=== PATIENT | male | born 1975 | race Caucasian/White ===

== ENCOUNTER 2024-01-13 07:05 | Emergency (ER) | payer OTHER ==
[~2024-01-13] VITALS: Ht 193 cm; Wt 103.0 kg
[2024-01-13] MEDS ORDERED: IBUPROFEN 800 MG TAB PO ONE (07:45)
[2024-01-13 08:54] VITALS: BP 136/93
== END 2024-01-13 08:54 | disposition home or self-care (01) ==
LOC: ED 07:05
DX: M25.571 Pain in right ankle and joints of right foot (principal)
CPT/HCPCS: 73610; 99283; A9270

== ENCOUNTER 2024-02-29 11:15 | Day surgery (SDC) | payer OTHER ==
[2024-02-27 09:22] VITALS: BP 116/78
[~2024-02-29] VITALS: Ht 193 cm; Wt 102.3 kg
[~2024-02-29 11:15] MED LIST: CEFAZOLIN SODIUM 2 GM/20 ML SYR IV SCH; IBLOOD GLUCOSE TEST STRIP 1 EA TEST VI PRN; LACTATED RINGER'S 1,000 ML IV SCH; LIDOCAINE HCL 1% 5 ML SDV INJ ONE; MULTI VITAMIN1 EACH PO; OXYCODONE HCL10 MG PO; PROBIOTIC1 EAC8 PO
[2024-02-29 11:37] VITALS: BP 117/77
[2024-02-29] MEDS ORDERED: propofoL 200 MG/20 ML VIAL ONE (13:05)
[2024-02-29] MEDS ORDERED: dexmedeTOMIDine HCl 200 MCG/2 ML VIAL ONE (13:26)
[2024-02-29] MEDS ORDERED: LACTATED RINGER'S 1,000 ML IV ONE (13:28)
--- NOTE | 2024-02-29 13:45 | NUR ---
02/29/24 1343 [place] 1336 PT TO PACU SLEEPING ORAL AIRWAY IN PLACE. O2 VIA VENTI MASK.
[2024-02-29 14:37] VITALS: BP 107/79
--- NOTE | 2024-02-29 15:12 | OR ---
[facility] [address], [place] [address] Signed DATE OF OPERATION: 02/29/2024 SURGEON: Nancy Busch MD PREOPERATIVE DIAGNOSES: 1. Sister with colon cancer, age 42 and a few months later. 2. Possible maternal grandmother with colon cancer. POSTOPERATIVE DIAGNOSES: 1. A 7 mm pedunculated polyp at 20 cm in distal sigmoid colon (snare). 2. Moderate left-sided diverticulosis. 3. Moderate internal hemorrhoids. PROCEDURE: Colonoscopy with snare polypectomy and cauterization of polyp stump at 20 cm. INDICATIONS: Lona is a 48-year-old gentleman, asked to see me for his initial colonoscopy. He told me his sister developed colon cancer at age 42. She just a few months later. He is not sure if his maternal grandmother had colon cancer. He has spent the last year recovering from his own back surgery. He has a metal cage with some other metal in his back. He has used a lot of oxycodone over the last year. He said he has also been using some marijuana. He certainly needs monitored anesthesia care with propofol infusion. That proved a cruz decision today. He said he was constipated initially with the oxycodone, but later it was improved when he added Metamucil. His neurosurgeon recommended he take antibiotics before any procedures. We gave him some Ancef today before we started. I had given Lona a brochure in the office on colonoscopy. We had reviewed the nature of the test. There is risk including, but not limited to gas bloating, crampy abdominal pain, bleeding, perforation requiring surgery, and missed diagnosis. We also reviewed the written instructions for his bowel prep line by line. He understands an adult person has to take him home afterwards. He had expressed understanding and wished to proceed. PROCEDURE IN DETAIL: Lona was taken into our endoscopy suite and placed in the left lateral decubitus position. We provided some extra padding particularly between his knees because of his back surgery. Once he was comfortable in a neutral left lateral decubitus position, we went ahead and placed him under monitored anesthesia care with propofol infusion per our nurse pricing actuary. A digital rectal exam was performed, this was unremarkable. He has really not much if any in the way of external hemorrhoids. He had good sphincter tone. Electronically Signed By: NANCY BUSCH MD 02/29/24 1512 PATIENT NAME: LONA AVELAR OPERATIVE REPORT DATE OF : 75 REPORT #: [id number] PHYSICIAN: NANCY BUSCH MD PCP: JACQUELINE SILVER MD REPORT IS CONFIDENTIAL AND NOT TO BE RELEASED WITHOUT AUTHORIZATION [facility] [address], [place] [address] Signed There were no masses. His prostate is becoming enlarged and the left is more prominent than the right. The adult colonoscope was introduced and advanced all around into the cecum under direct visualization of the camera without difficulty. The scope was then slowly withdrawn. We could easily see the appendiceal orifice and the ileocecal valve. He had a good prep. We took several pictures throughout for photodocumentation. He does have diverticula in the left and sigmoid colon. They were moderate in size, few to moderate in number and scattered about. At 20 cm in his distal sigmoid colon, he had a pedunculated 7 mm polyp. We cut that at the base with the hot snare. We captured it on our scope and brought it out for pathologic review. We went back and we just simply cauterize the base of that polyp stalk. After this, the scope was brought down to the rectum and it was unremarkable. The scope was then retroflexed and he does have moderate internal hemorrhoid tissue. I would doubt that he has a little rectal bleeding from time to time. After this, the gas was suctioned out and the colonoscope removed. Lona tolerated the procedure quite well. RECOMMENDATIONS: I will see Lona back in my office in 7 to 14 days to review his results. He will need to be on the five year plan just because of his own sister's history of colon cancer at age 42. We will also review his pathology report. Nancy Busch MD ALB/MODL /[id number] cc: Dr. Jacqueline Busch MD Copies: NANCY BUSCH MD ~ Electronically Signed By: NANCY BUSCH MD 02/29/24 1512 PATIENT NAME: LONA AVELAR OPERATIVE REPORT DATE OF : 75 REPORT #: [id number] PHYSICIAN: NANCY BUSCH MD PCP: JACQUELINE SILVER MD REPORT IS CONFIDENTIAL AND NOT TO BE RELEASED WITHOUT AUTHORIZATION
--- NOTE | 2024-03-02 10:26 | PATH ---
[facility] [address] [place] [address] [place], [place] [address] Signed SPECIMEN(S): A DISTAL SIGMOID POLYP AT 20 CM SPECIMEN SOURCE: A. DISTAL SIGMOID POLYP AT 20 CM CLINICAL HISTORY: Family history of colon cancer, diverticulosis, polyp, INT hemorrhoids FINAL PATHOLOGIC DIAGNOSIS: Distal sigmoid polyp at 20 cm: - Tubular adenoma, negative for high-grade dysplasia. - Morphologic features consistent with complete excision. NA MICROSCOPIC EXAMINATION: Histologic sections of all submitted blocks are examined by light microscopy. These findings, together with the gross examination, support the pathologic diagnosis. GROSS DESCRIPTION: The specimen, labeled and designated "Tigist Mayorga, distal sigmoid polyp at 20 cm," is received in formalin and consists of one marvin soft tissue fragment, 0.9 x 0.8 x 0.5 cm. The tissue is inked black and bisected.Entirely submitted in (A1). AB (under the direct supervision of a pathologist) The Gross Description was prepared using a voice recognition system. The report was reviewed for accuracy; however, sound-alike word errors, addition and/or deletions may occur. If there is any question about this report, please contact Client Services. ADDITIONAL NOTES: Immunohistochemical and/or in situ hybridization studies if performed in this case included appropriate positive controls that reacted as expected. This test was developed and its performance characteristics determined by [facility]. It has not been cleared or approved by the U.S. Food and Drug Administration. The FDA has determined that such clearance or approval is not necessary. This test is used for clinical purposes. It should not be regarded as investigational or for research. [facility] is certified under the Clinical Laboratory Improvement Amendments of 1988 (CLIA) as qualified to perform high complexity clinical PATIENT NAME: LONA MAYORGA PATHOLOGY DATE OF : 75 REPORT #: [id number] PHYSICIAN: DEREK PATHOLOGY PCP: CHEMA SILVER MD REPORT IS CONFIDENTIAL AND NOT TO BE RELEASED WITHOUT AUTHORIZATION [facility] [address] [place], [place] [address] Signed laboratory testing. PERFORMING LABORATORY: Technical component was performed by [facility], [address] [place] [address] (CLIA# [id number]). Professional interpretation was performed by [facility] - [facility], [address] [place] [address] (CLIA#: [id number]). Diagnostician: Anali Perkins MD Pathologist Electronically Signed 03/02/2024 Copies: ~ PATIENT NAME: LONA MAYORGA PATHOLOGY DATE OF : 75 REPORT #: [id number] PHYSICIAN: DEREK PATHOLOGY PCP: CHEMA SILVER MD REPORT IS CONFIDENTIAL AND NOT TO BE RELEASED WITHOUT AUTHORIZATION
== END 2024-02-29 14:50 | disposition home or self-care (01) ==
LOC: DS 11:15
PROVIDERS: ATTEND Colon & Rectal Surgery
PROC: 0DBN8ZZ Excision of Sigmoid Colon, Via Natural or Artificial Opening Endoscopic (ICD-10-PCS; principal; 2024-02-29 12:45)
DX: Z12.11 Encounter for screening for malignant neoplasm of colon (principal); D12.5 Benign neoplasm of sigmoid colon; K57.30 Diverticulosis of large intestine without perforation or abscess without bleeding; K64.8 Other hemorrhoids; I10 Essential (primary) hypertension; F17.210 Nicotine dependence, cigarettes, uncomplicated; Z91.040 Latex allergy status; Z91.030 Bee allergy status; Z80.0 Family history of malignant neoplasm of digestive organs
CPT/HCPCS: 00811; J0690; J2704; J7121